=== PATIENT | male | born 1980 | race Caucasian/White ===

== ENCOUNTER 2019-01-10 08:32 | Emergency (ER) | payer OTHER ==
[~2019-01-10] VITALS: Ht 185.4 cm; Wt 114.3 kg
[2019-01-10 09:37] LABS: CALCIUM 8.4 mg/dL (8.5-10.1); CARBON DIOXIDE 25.1 mmol/L (21-32); CHLORIDE SERUM 95 mmol/L (98-107); CREATININE SERUM 0.7 mg/dL (0.7-1.3); GFR1 > 60 mL/min; GLUCOSE SERUM 323 mg/dL (74-106); POTASSIUM SERUM 4.4 mmol/L (3.5-5.1); SODIUM SERUM 129 mmol/L (136-145)
[2019-01-10 09:39] LABS: BASOPHIL % 0.3 % (0-2); PLATELET COUNT 433 x10^3mcL (130-400); RED CELL DISTRIBUTION WIDTH 13.2 % (11.5-14.5)
[2019-01-10 09:48] LABS: ALKALINE PHOSPHATASE 151 U/L (46-116); ALT/SGPT 23 U/L (16-63); AST/SGOT 10 U/L (15-37); BILIRUBIN TOTAL 0.2 mg/dL (0.20-1.00); C REACTIVE PROTEIN 11.3 mg/dL (<=0.9); TOTAL PROTEIN, SERUM 7.2 g/dL (6.4-8.2)
[2019-01-10 09:49] LABS: ALBUMIN 3.1 g/dL (3.4-5.0)
[2019-01-10 09:52] LABS: CK-MB 1.9 ng/mL (0-3.6)
[2019-01-10 11:09] LABS: ERYTHROCYTE SED RATE 42 mm/hr (0-15)
[2019-01-10 12:47] VITALS: BP 144/89
== END 2019-01-10 12:47 | disposition short-term general hospital (02) ==
LOC: ED 08:32
PROVIDERS: Specialist
DX: I89.1 Lymphangitis (principal); D72.829 Elevated white blood cell count, unspecified
CPT/HCPCS: J1885; J2405; J2543; J3010; J3370; J7030; J7050

== ENCOUNTER 2020-07-14 15:01 | Emergency (ER) | payer OTHER | END 2020-07-14 19:00 | disposition other institution (70) | LOC: ED 15:01 | DX: Z02.89 Encounter for other administrative examinations (principal) ==

== ENCOUNTER 2020-07-14 15:01 | Emergency (ER) | payer SELFPAY ==
[~2020-07-14] VITALS: Ht 182.9 cm; Wt 102.1 kg
[2020-07-14 15:26] VITALS: Ht 182.9 cm; Wt 102.1 kg
[2020-07-14 17:45] LABS: BASOPHIL % 0.3 % (0-2); PLATELET COUNT 336 x10^3mcL (130-400)
[2020-07-14 18:03] LABS: CALCIUM 8.2 mg/dL (8.5-10.1); CARBON DIOXIDE 25.1 mmol/L (21-32); CHLORIDE SERUM 104 mmol/L (98-107); CREATININE SERUM 0.8 mg/dL (0.7-1.3); GFR1 > 60 mL/min; GLUCOSE SERUM 274 mg/dL (74-106); POTASSIUM SERUM 3.6 mmol/L (3.5-5.1); SODIUM SERUM 138 mmol/L (136-145)
[2020-07-14 18:07] LABS: ALKALINE PHOSPHATASE 155 U/L (46-116); ALT/SGPT 9 U/L (16-63); AST/SGOT 15 U/L (15-37); BILIRUBIN TOTAL 0.23 mg/dL (0.20-1.00); TOTAL PROTEIN, SERUM 6.9 g/dL (6.4-8.2)
[2020-07-14 18:09] LABS: ALBUMIN 3.2 g/dL (3.4-5.0)
[2020-07-14 18:28] VITALS: BP 135/79
== END 2020-07-14 19:00 | disposition other institution (70) ==
LOC: ED 15:01
PROVIDERS: Emergency Medicine
DX: E11.9 Type 2 diabetes mellitus without complications (principal)
CPT/HCPCS: 82962; J1815; J7030